=== PATIENT | male | born 1970 | race Caucasian/White ===

== ENCOUNTER 2019-01-16 07:00 | Emergency (ER) | payer BC ==
--- NOTE | 2019-01-16 07:23 | ED ---
Back Pain - HPI Summary HPI Summary: Patient is a 48-year-old male who presents emergency department for exacerbation of chronic low back pain. Patient states he's been having consistent with back pain for about 5 years. He has seen his family doctor in the past and is currently prescribed meloxicam. Patient states he takes this on a daily basis and usually helps with pain. Patient states today pain was worse than usual and presents for evaluation. Patient notes pain is midline low back and occasionally radiates into legs. He denies bowel or bladder incontinence or retention. Denies leg numbness, tingling or weakness. Denies abdominal pain, fever, vomiting, diarrhea, chest pain, shortness of breath. Patient notes pain is worse when he goes from sitting to standing and straighten out his back. Symptoms are mild in severity. Patient denies any recent falls or injuries. 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 - History of Current Complaint Chief Complaint: EDBackInjuryPain Stated Complaint: BACK PAIN PER PT Time Seen by Provider: 01/16/19 07:11 Hx Obtained From: Patient Pain Intensity: 8 - Allergies/Home Medications Allergies/Adverse Reactions: Allergies Allergy/AdvReac Type Severity Reaction Status Date / Time No Known Allergies Allergy Verified 01/16/19 07:09 Home Medications: Home Medications Lisinopril TAB* [Prinivil TAB*] 5 mg PO DAILY 01/16/19 [History Confirmed ] Meloxicam(NF) [Mobic(NF)] 15 mg PO DAILY 01/16/19 [History Confirmed 01/16/19] Metoprolol Succinate XL TAB* [Toprol XL TAB*] 50 mg PO DAILY 01/16/19 [History Confirmed 01/16/19] amLODIPine TAB* [Norvasc 5 mg TAB*] 10 mg PO DAILY 01/16/19 [History Confirmed 01/16/19] metFORMIN* [Glucophage 1000 MG TAB *] 1,000 mg PO BID 01/16/19 [History Confirmed 01/16/19] PMH/Surg Hx/FS Hx/Imm Hx Previously Healthy: Yes Infectious Disease History: No Infectious Disease History: Denies: Traveled Outside the [place] in Last 30 Days - Family History Known Family History: Positive: Non-Contributory - Social History Occupation: Employed Full-time Lives: With Family Alcohol Use: None Substance Use Type: Reports: None Smoking Status (MU): Former Smoker Review of Systems Constitutional: Negative Negative: Fever, Chills Cardiovascular: Negative Negative: Chest Pain Respiratory: Negative Negative: Shortness Of Breath Gastrointestinal: Negative Negative: Abdominal Pain, Vomiting, Diarrhea Positive: Other - low back pain Skin: Negative Neurological: Negative Negative: Weakness, Paresthesia, Numbness All Other Systems Reviewed And Are Negative: Yes Physical Exam Triage Information Reviewed: Yes Vital Signs On Initial Exam: Initial Vitals Temp Pulse Resp BP Pulse Ox 98.8 F 80 18 173/79 96 01/16/19 07:07 01/16/19 07:07 01/16/19 07:07 01/16/19 07:07 01/16/19 07:07 Vital Signs Reviewed: Yes Appearance: Positive: Well-Appearing - Pt. sitting on side of bed in NAD. Son present. Skin: Positive: Warm, Dry Head/Face: Positive: Normal Head/Face Inspection Eyes: Positive: Normal, EOMI Neck: Positive: Supple Musculoskeletal: Positive: Other - No reproducible pain to palpation of back. Positive straight leg test on the left. 5/5 strength in bilateral LEs with flexion and extension. No sensory deficits. Neurological: Positive: Normal, CN Intact II-III Psychiatric: Positive: Affect/Mood Appropriate Diagnostics - Vital Signs Vital Signs Temp Pulse Resp BP Pulse Ox 01/16/19 07:07 98.8 F 80 18 173/79 96 - Laboratory Lab Statement: Any lab studies that have been ordered have been reviewed, and results considered in the medical decision making process. Back Pain Course/Dx - Course Course Of Treatment: Patient presenting for worsening ongoing low back pain. He has no neuro deficits on exam or evidence of cauda equina syndrome. He is afebrile. X-ray shows degenerative disc disease, reading per radiology. Based on exam suspect disc herniation. Will have patient follow up with his PCP for referral to neurosurgery for further evaluation and treatment. Course of prednisone prescribed. Advised gentle stretching and light activity patient given warning signs went to return to the ER. Patient understands and agrees with plan.. - Diagnoses Differential Diagnosis/HQI/PQRI: Positive: Arthritis, Compressive Cord Syndrome , Epidural Abscess, Fracture, Herniated Disc, Neoplasm, Strain, Sprain Provider Diagnoses: Lumbosacral disc herniation, Degenerative disc disease Discharge - Sign-Out/Discharge Documenting (check all that apply): Patient Departure Patient Received Moderate/Deep Sedation with Procedure: No - Discharge Plan Condition: Good Disposition: HOME Prescriptions: predniSONE TAB* [Deltasone 20 MG TAB*] 40 mg PO DAILY #10 tab Patient Education Materials: Lumbar Disc Herniation (ED), Degenerative Disc Disease (ED), Lower Back Exercises (ED) Forms: *Work Release Referrals: Alvin Vides MD [Medical Doctor] - Napoleon WARNER,Mateo Augustin [Primary Care Provider] - Additional Instructions: Schedule a follow up appointment with PCP for referral to neurosurgery Alternate between ice and heat Gentle stretching and exercise Prednisone as directed Return to ER if symptoms change or worsen - Billing Disposition and Condition Condition: GOOD Disposition: Home
[2019-01-16 08:23] VITALS: BP 161/71
== END 2019-01-16 08:22 | disposition home or self-care (01) ==
LOC: ED 07:00
DX: M51.27 Other intervertebral disc displacement, lumbosacral region (principal); M51.37 Other intervertebral disc degeneration, lumbosacral region; I10 Essential (primary) hypertension; E11.9 Type 2 diabetes mellitus without complications; Z79.899 Other long term (current) drug therapy; Z87.891 Personal history of nicotine dependence; Z79.84 Long term (current) use of oral hypoglycemic drugs
CPT/HCPCS: 72110; 99282